=== PATIENT | male | born 1965 ===

== ENCOUNTER 2017-04-28 20:04 | Emergency (ER) | payer SELFPAY ==
[2017-04-28 20:04] VITALS: BMI 25.4
[2017-04-28 20:09] VITALS: BP 126/75; PULSE 81; RESP 16; TEMP 98.2; O2SAT 98
[2017-04-28] MEDS: Sodium Chloride 0.9% 1,000 ML IV STA (21:02)
[2017-04-28 21:13] LABS: BASO # 0.1 K/uL (0.0-0.2); BASO % 0.9 % (0.0-2.0); EOS # 0.2 K/uL (0.0-0.7); EOS % 2.3 % (0.0-4.0); HEMATOCRIT 38.5 % (35.0-51.0); LYMPH # 2.4 K/uL (1.0-4.3); LYMPH % 29.6 % (20.0-40.0); MEAN CELL VOLUME 87.6 fl (80.0-94.0); MEAN CORPUSCULAR HEMOGLOBIN 29.4 pg (27.0-31.0); MEAN CORPUSCULAR HGB CONC 33.6 g/dL (33.0-37.0); MEAN PLATELET VOLUME 9.7 fl (7.2-11.7); MONO # 0.8 K/uL (0.0-0.8); MONO % 10.4 % (0.0-10.0); NEUT # 4.6 K/uL (1.8-7.0); NEUT % 56.8 % (50.0-75.0); NRBC % 0.1 % (0.0-0.0); RED CELL DISTRIBUTION WIDTH 12.7 % (11.5-14.5); WHITE BLOOD COUNT 8.1 K/uL (4.8-10.8)
[2017-04-28 21:18] LABS: RBC URINE 1 /hpf (0-3); URINE BILIRUBIN NEGATIVE (NEGATIVE); URINE BLOOD NEGATIVE (NEGATIVE); URINE COLOR YELLOW (YELLOW); URINE GLUCOSE (UA) NEG (Normal); URINE KETONE NEGATIVE (NEGATIVE); URINE LEUKOCYTE ESTERASE NEG Leu/uL (Negative); URINE PROTEIN 30 mg/dL (NEGATIVE); URINE UROBILINOGEN 0.2-1.0 mg/dL (0.2-1.0); WBC URINE < 1 /hpf (0-5)
[2017-04-28 21:22] LABS: ALB/GLOB RATIO 1.6 (1.0-2.1); ALKALINE PHOSPHATASE 73 U/L (38-126); ALT/SGPT 52 U/L (21-72); AST/SGOT 35 U/L (17-59); BILIRUBIN,TOTAL 0.3 mg/dl (0.2-1.3); BLOOD UREA NITROGEN 13 mg/dl (9-20); CALCIUM 8.8 mg/dL (8.4-10.2); CARBON DIOXIDE 24 mmol/L (22-30); CHLORIDE 108 mmol/L (98-107); GFR AFRICAN-AMERICAN > 60; GLUCOSE,RANDOM 143 mg/dL (75-110); MAGNESIUM 1.9 MG/DL (1.6-2.3); POTASSIUM 3.8 MMOL/L (3.6-5.0); SODIUM 141 mmol/l (132-148)
--- NOTE | 2017-04-28 21:22 | ED PDOC ---
HPI: General Adult Time Seen by Provider: 04/28/17 21:09 Chief Complaint (Nursing): Dizziness/Lightheaded Chief Complaint (Provider): "heat " History Per: Patient History/Exam Limitations: no limitations Additional Complaint(s): 52 yo M in ED for eval sensations of "heat" in his body and approaching the feeling of" shaking, and dizziness" while taking shower. since symptoms have resolved. pt admits to working in the sun with limited water intake. negative for: WATSON, vision changes, dizzinesses, SOB, abd pain, dysuria diarrhea, ear pain. Past Medical History Reviewed: Historical Data, Nursing Documentation, Vital Signs Vital Signs: Last Vital Signs Temp 98.2 F 04/28/17 20:07 Pulse 81 04/28/17 20:07 Resp 16 04/28/17 20:07 BP 126/75 04/28/17 20:07 Pulse Ox 98 04/28/17 21:24 - Medical History PMH: Asthma - Family History Family History: States: Diabetes - Immunization History Hx Tetanus Toxoid Vaccination: No Hx Influenza Vaccination: No Hx Pneumococcal Vaccination: No - Home Medications Home Medications: Ambulatory Orders Medication Instructions Recorded Albuterol HFA [Ventolin HFA 90 2 puff IH [id number] PRN #1 inhaler 01/30/17 mcg/actuation (8 g)] Fexofenadine HCl [FloresNf] 1 tab PO DAILY #14 tab 01/30/17 Ketotifen Fumarate [Zaditor] 1 drop OU BID #5 ml 01/30/17 Montelukast [Singulair] 1 tab PO DAILY #30 tab 01/30/17 Prednisone [Deltasone] 1 tab PO Q8 #15 tablet 01/30/17 - Allergies Allergies/Adverse Reactions: Allergies Allergy/AdvReac Type Severity Reaction Status Date / Time No Known Allergies Allergy Verified 11/25/16 12:28 Review of Systems ROS Statement: Except As Marked, All Systems Reviewed And Found Negative Constitutional: Negative for: Fever, Chills, Weakness, Malaise Eyes: Negative for: Vision Change Cardiovascular: Positive for: Palpitations. Negative for: Chest Pain Respiratory: Negative for: Cough, Shortness of Breath Physical Exam - Reviewed Nursing Documentation Reviewed: Yes Vital Signs Reviewed: Yes - Physical Exam Appears: Positive for: Well, Non-toxic, No Acute Distress Skin: Positive for: Normal Color, Warm, DRY Eye Exam: Positive for: Normal appearance, EOMI, PERRL ENT: Positive for: Normal ENT Inspection Cardiovascular/Chest: Positive for: Regular Rate, Rhythm Respiratory: Positive for: CNT, Normal Breath Sounds Gastrointestinal/Abdominal: Positive for: Normal Exam, Bowel Sounds, Soft. Negative for: Tenderness Extremity: Positive for: Normal ROM. Negative for: Pedal Edema, Swelling Neurologic/Psych: Positive for: Alert, Oriented - Laboratory Results Result Diagrams: 04/28/17 21:02 04/28/17 21:02 - ECG O2 Sat by Pulse Oximetry: 98 - Progress ED Course And Treament: PT will be evulated for dizziness and ? heat exhaustion vs dehydration will orderr: cbc/cmp/EKG/Torp UA. given Fluids Medical Decision Making Medical Decision Making: labs are unremarkable, EKG: NSR pt advised to f.u with pmd no indication at this time for admission or further ED intervention. Pt is now symptoms free and feels well after 1 NS bolus. Pt advised to return to ED if with persistent symptoms and or chest pain. advised to drink plenty of fluids. PT given meclizine if he develops dizziness Disposition - Clinical Impression Clinical Impression: Weakness generalized - Patient ED Disposition Is Patient to be Admitted: No Counseled Patient/Family Regarding: Studies Performed, Diagnosis, Need For Followup - Disposition Referrals: [facility] [Outside] Disposition: Routine/Home Disposition Time: 21:48 Condition: STABLE Instructions: Weakness (ED)
--- NOTE | 2017-04-30 18:22 | CARD ---
APPROVED REPORT EKG Measurement [id number] <Conclusion> Normal sinus rhythm Normal ECG
== END 2017-04-28 23:20 | disposition home or self-care (01) ==
LOC: H.ER 20:04
DX: R53.1 Weakness (principal); F15.20 Other stimulant dependence, uncomplicated
CPT/HCPCS: 80053; 81003; 83735; 84484; 85025; 93005; 99284; J7040

== ENCOUNTER 2018-01-10 13:48 | Emergency (ER) | payer SELFPAY ==
[2018-01-10 13:49] VITALS: BMI 25.4
[2018-01-10 13:59] VITALS: BP 122/80; PULSE 71; RESP 16; TEMP 98.3; O2SAT 97
--- NOTE | 2018-01-10 14:00 | ED PDOC ---
HPI: General Adult Time Seen by Provider: 01/10/18 13:59 Chief Complaint (Nursing): Cough, Cold, Congestion Chief Complaint (Provider): Cough, Congestion History Per: Patient History/Exam Limitations: no limitations Additional Complaint(s): 52 y/o male who presents to the ED complaining of cough and congestion that started 4 weeks ago. Patient denies fever. He has no other medical complaints. PMD: None Past Medical History Reviewed: Historical Data, Nursing Documentation, Vital Signs Vital Signs: Last Vital Signs Temp 98.3 F 01/10/18 13:55 Pulse 71 01/10/18 13:55 Resp 16 01/10/18 13:55 BP 122/80 01/10/18 13:55 Pulse Ox 97 01/10/18 14:19 - Medical History PMH: Asthma - Family History Family History: States: Diabetes - Living Arrangements Living Arrangements: With Family - Social History Current smoker - smoking cessation education provided: Yes Alcohol: None Drugs: Denies - Home Medications Home Medications: Ambulatory Orders Medication Instructions Recorded Pseudoephedrine HCl [Sudafed 24 240 mg PO DAILY PRN #1 unit 10/31/17 Hour] Azithromycin [Zithromax] 250 mg PO DAILY #6 tab 01/10/18 Benzonatate 200 mg PO TID PRN #20 capsule 01/10/18 Fluticasone Nasal [Flonase] 1 spray NS DAILY #1 bottle 01/10/18 - Allergies Allergies/Adverse Reactions: Allergies Allergy/AdvReac Type Severity Reaction Status Date / Time No Known Allergies Allergy Verified 01/10/18 13:55 Review of Systems ROS Statement: Except As Marked, All Systems Reviewed And Found Negative Constitutional: Negative for: Fever ENT: Positive for: Nose Congestion Respiratory: Positive for: Cough. Negative for: Shortness of Breath Gastrointestinal: Negative for: Nausea, Vomiting Physical Exam - Reviewed Nursing Documentation Reviewed: Yes Vital Signs Reviewed: Yes - Physical Exam Appears: Positive for: Well, Non-toxic, No Acute Distress Skin: Positive for: Normal Color, Warm, Dry ENT: Positive for: TM Is/Are (normal bilaterally), Nasal Congestion, Other ( Sinus Congestion) Cardiovascular/Chest: Positive for: Regular Rate, Rhythm Respiratory: Positive for: Normal Breath Sounds. Negative for: Wheezing, Respiratory Distress Lymphatic: Positive for: Normal Exam Neurologic/Psych: Positive for: Alert, Oriented - ECG Interpretation Of ECG: Normal sinus rhythm 67 bpm, no acute changes, reviewed by PA and ED attending O2 Sat by Pulse Oximetry: 97 (RA) Pulse Ox Interpretation: Normal - Other Rad CXR X-Ray: Interpreted by Me, Viewed By Me X-Ray Interpretation: no acute finding Medical Decision Making Medical Decision Making: Time: 14:03 Initial Impression: 52 y/o male with persistent cough and congestion Initial Plan: --Chest XR Chest x-ray demonstrates no acute findings. Patient given prescriptions for Flonase, Zithromax and Tessalon Perles. He was instructed to follow up with clinic for further evaluation. Smoking cessation instructions provided. Scribe Attestation: Documented by Franklin Kraft, acting as a scribe for Alyssa Romero PA-C. Provider Scribe Attestation: All medical record entries made by the Scribe were at my direction and personally dictated by me. I have reviewed the chart and agree that the record accurately reflects my personal performance of the history, physical exam, medical decision making, and the department course for this patient. I have also personally directed, reviewed, and agree with the discharge instructions and disposition. Disposition - Clinical Impression Clinical Impression: Upper respiratory infection - Patient ED Disposition Is Patient to be Admitted: No Counseled Patient/Family Regarding: Studies Performed, Diagnosis, Need For Followup, Rx Given, Smoking Cessation - Disposition Referrals: [facility] [Outside] Disposition: Routine/Home Disposition Time: 15:59 Condition: STABLE Additional Instructions: Take meds as directed, follow-up with clinic. Prescriptions: Azithromycin [Zithromax] 250 mg PO DAILY #6 tab Benzonatate 200 mg PO TID PRN #20 capsule PRN Reason: Cough Fluticasone Nasal [Flonase] 1 spray NS DAILY #1 bottle Instructions: Bacterial Upper Respiratory Infection, Adult, Quitting Smoking Forms: [employer] (Mongolian) Print Language: ARMENIAN
--- NOTE | 2018-01-10 16:53 | RAD ---
HISTORY: cough COMPARISON: No prior. TECHNIQUE: Chest PA and lateral FINDINGS: LUNGS: No active pulmonary disease. PLEURA: No significant pleural effusion identified. No pneumothorax apparent. CARDIOVASCULAR: Normal. OSSEOUS STRUCTURES: No significant abnormalities. VISUALIZED UPPER ABDOMEN: Normal. OTHER FINDINGS: None. IMPRESSION: No active disease.
== END 2018-01-10 16:11 | disposition home or self-care (01) ==
LOC: H.ER 13:48
DX: J06.9 Acute upper respiratory infection, unspecified (principal)